=== PATIENT | female | born 1995 | race African-American/Black ===

== ENCOUNTER 2025-04-14 13:06 | Emergency (ER) | payer MEDICAID, OTHER ==
[2025-04-14] MEDS ORDERED: diphenhydrAMINE 25 MG CAP ONE (13:42)
[2025-04-14] MEDS ORDERED: Famotidine 20 MG TAB ONE (13:43)
[2025-04-14] MEDS ORDERED: predniSONE 20 MG TAB ONE (13:43)
== END 2025-04-14 14:39 | disposition home or self-care (01) ==
LOC: ERS 13:06
DX: L25.9 Unspecified contact dermatitis, unspecified cause (principal)
CPT/HCPCS: J7512